=== PATIENT | male | born 1995 | race Caucasian/White ===

== ENCOUNTER 2022-10-28 11:19 | Emergency (ER) | payer OTHER ==
[~2022-10-28] VITALS: Ht 167.6 cm; Wt 77.1 kg
[2022-10-28] MEDS ORDERED: BACI/NEOM/POLY B OINT PKT 1 UDPKT PACKET TP ONE (11:30)
[2022-10-28] MEDS ORDERED: TDAP [DIPH/PERTUSSIS/TET] 0.5 ML VIAL IM ONE ×2 (11:30→11:43)
[2022-10-28] MEDS ORDERED: LIDOCAINE 1% INJ 50 ML MDV IJ ONE (11:30)
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
[2022-10-28] MEDS ORDERED: BACI/NEOM/POLY B OINT PKT 1 UDPKT PACKET ONE (11:42)
--- NOTE | 2022-10-28 14:30 | NUR ---
wound suture performed at bedside by MD , dressing and splint applied by emt.
[2022-10-28] MEDS ORDERED: BENZOIN COMPOUND TINCT 60 ML BOTTLE ONE (14:45)
[2022-10-28] MEDS ORDERED: HYDR-4209 PO (15:13)
[2022-10-28] MEDS ORDERED: IBUP-1955 PO (15:13)
[2022-10-28] MEDS ORDERED: AMOX-430 PO (15:13)
--- NOTE | 2022-10-28 15:28 | NUR ---
Patient discharged to home in stable condition. Written and verbal after care instructions given. Patient verbalizes understanding of instruction.
[2022-10-28 15:30] VITALS: BP 132/131
== END 2022-10-28 15:31 | disposition home or self-care (01) ==
LOC: ER 11:27
DX: S62.666A Nondisplaced fracture of distal phalanx of right little finger, initial encounter for closed fracture (principal); S61.316A Laceration without foreign body of right little finger with damage to nail, initial encounter; V69.88XA Occupant (driver) (passenger) of heavy transport vehicle injured in other specified transport accidents, initial encounter; Y93.89 Activity, other specified; Y92.89 Other specified places as the place of occurrence of the external cause; Y99.8 Other external cause status
CPT/HCPCS: 99284; 90471; 11730; 90715; 73140; A6403